=== PATIENT | female | born 1980 | race Caucasian/White ===

== ENCOUNTER → 2017-11-21 | Outpatient (CLI) | payer SELFPAY ==
[~2017-11-21] MED LIST: ABILIFY 10MG TA10 MG PO; AMOXICILLIN500 MG PO; ATIVAN0.5 MG PO; CELEXA 20MG20 MG/TAB PO; CEPHALEXIN250 M1 PO; CEPHALEXIN500 M1 PO; CLINDAMYCI300 MG/50 IV; HYDROCODONE/APAP PO; LORTAB 5/500 501 TAB PO; NO HOME MEDICATIONS; OXYCODONE5 M1 PO; PERCOCET 500 MG1 TAB PO; PREDNISONE10 MG PO; SEROQUEL 200MG200 MG PO; TRIAMCINOLONE A15 GM TP; ZIPRASIDONE
[2017-11-21 17:19] LABS: ALBUMIN 3.9 gm/dL (3.5-5.0); BILIRUBIN,TOTAL 0.3 mg/dL (0.0-1.0); CALCIUM 9.4 mg/dL (8.4-10.2); CREATININE, serum 0.96 mg/dL (0.52-1.25); TOTAL PROTEIN 7.7 gm/dL (6.4-8.2)
[2017-11-21 17:22] LABS: BASO # 0.1 (0.0-0.2); EOS # 0.3 (0.0-0.7); EOS % 4.5 % (0-4.0); GRAN # 3.2 (1.4-6.5); GRAN % 55.1 % (42.2-75.2); HEMATOCRIT 40.2 % (37.0-47.0); HEMOGLOBIN 13.3 g/dl (12.5-16.0); LYMPH # 1.8 (1.2-3.4); LYMPH % 31.3 % (20.0-51.0); MEAN CELL VOLUME 95 fl (80.0-100.0); MEAN CORPUSCULAR HEMOGLOBIN 31 pg (27.0-31.0); MEAN CORPUSCULAR HGB CONC 33 g/dl (33.0-37.0); MEAN PLATELET VOLUME 10.6 fl (7.4-10.4); MONO # 0.5 (0.1-0.6); MONO % 7.9 % (1.7-9.3); PLATELET COUNT 262 K/mm3 (130-400); RED BLOOD COUNT 4.24 M/mm3 (4.10-5.30); REDCELL DISTRIBUTION WIDTH-CV 12.9 % (11.5-14.5)
[2017-11-21 17:48] LABS: TSH w REFLEX 1.72 uIU/mL (0.465-4.680)
== END ==
LOC: COL.LAB 15:57
PROVIDERS: Family Medicine
DX: B19.20 Unspecified viral hepatitis C without hepatic coma (principal); R60.9 Edema, unspecified; R53.83 Other fatigue

== ENCOUNTER 2018-02-26 10:09 | Outpatient (RCR) | payer OTHER | END 2018-05-27 | disposition home or self-care (01) | LOC: WSOH | DX: S61.214A Laceration without foreign body of right ring finger without damage to nail, initial encounter (principal); W26.8XXA Contact with other sharp object(s), not elsewhere classified, initial encounter; Y92.59 Other trade areas as the place of occurrence of the external cause; Y99.0 Civilian activity done for income or pay ==

== ENCOUNTER 2018-11-09 07:41 | Emergency (ER) | payer SELFPAY ==
[~2018-11-09] VITALS: Ht 180.3 cm; Wt 92.3 kg
[2018-11-09 07:47] VITALS: BP 132/82; TEMP 97.9
[2018-11-09] MEDS ORDERED: BACTRIM DS 8001 TAB PO (08:47)
[2018-11-09] MEDS ORDERED: REGLAN 5MG T5 MG/TAB PO (08:47)
[2018-11-09] MEDS ORDERED: NORCO 325 MG-51 TAB PO (08:47)
[2018-11-09] MEDS ORDERED: DIFLUCAN150 MG PO (09:10)
[2018-11-09 09:25] VITALS: PULSE 90
== END 2018-11-09 09:28 | disposition home or self-care (01) ==
LOC: COL.ER 07:41
DX: L03.113 Cellulitis of right upper limb (principal); F17.210 Nicotine dependence, cigarettes, uncomplicated

== ENCOUNTER 2018-12-19 16:02 | Emergency (ER) | payer SELFPAY ==
[~2018-12-19] VITALS: Ht 180.3 cm; Wt 88.6 kg
[~2018-12-19 16:02] MED LIST changes: +BACTRIM DS 8001 TAB PO; +DIFLUCAN150 MG PO; +DOXYCYCLINE HY100 MG PO; +NORCO 325 MG-51 TAB PO; +REGLAN 5MG T5 MG/TAB PO
[2018-12-19 16:08] VITALS: BP 155/95; TEMP 98.5
[2018-12-19] MEDS ORDERED: CEPHALEXIN500 M1 PO (17:31)
[2018-12-19 17:43] VITALS: PULSE 87
== END 2018-12-19 17:43 | disposition home or self-care (01) ==
LOC: COL.ER 16:02
DX: M79.89 Other specified soft tissue disorders (principal); F17.210 Nicotine dependence, cigarettes, uncomplicated; F12.90 Cannabis use, unspecified, uncomplicated; F31.9 Bipolar disorder, unspecified

== ENCOUNTER 2019-08-27 12:24 | Emergency (ER) | payer SELFPAY ==
[~2019-08-27] VITALS: Ht 180.3 cm; Wt 77.3 kg
[2019-08-27 12:29] VITALS: BP 126/85; TEMP 97.6
[2019-08-27 13:01] LABS: COLLECTION METHOD CLEAN CATCH
[2019-08-27 13:14] LABS: BASO % 0.4 % (0.0-2.0); EOS # 0.2 (0.0-0.7); EOS % 2.6 % (0-4.0); GRAN # 4.9 (1.4-6.5); HEMATOCRIT 39.1 % (37.0-47.0); HEMOGLOBIN 12.7 g/dl (12.5-16.0); LYMPH # 1.2 (1.2-3.4); LYMPH % 17.1 % (20.0-51.0); MEAN CELL VOLUME 94 fl (80.0-100.0); MEAN CORPUSCULAR HEMOGLOBIN 30 pg (27.0-31.0); MEAN CORPUSCULAR HGB CONC 33 g/dl (33.0-37.0); MEAN PLATELET VOLUME 10.4 fl (7.4-10.4); MONO # 0.5 (0.1-0.6); MONO % 7.8 % (1.7-9.3); PLATELET COUNT 286 K/mm3 (130-400); RED BLOOD COUNT 4.18 M/mm3 (4.10-5.30); REDCELL DISTRIBUTION WIDTH-CV 12.4 % (11.5-14.5)
[2019-08-27 13:16] LABS: MUCOUS Present /lpf; PH 7 (5-8); URINE APPEARANCE Hazy; URINE BACTERIA Rare /hpf; URINE BILIRUBIN Negative (NEGATIVE); URINE BLOOD 2+ (NEGATIVE); URINE COLOR Yellow; URINE GLUCOSE Negative (NEGATIVE); URINE KETONE Negative (NEGATIVE); URINE LEUKOCYTE ESTERASE Negative (NEGATIVE); URINE NITRATE Negative (NEGATIVE); URINE PROTEIN(semi-quant) Negative (NEGATIVE); URINE RBC 0-2 /hpf; URINE UROBILINOGEN Negative (NEGATIVE)
[2019-08-27 13:22] LABS: ALBUMIN 4.1 gm/dL (3.5-5.0); BILIRUBIN,TOTAL 0.5 mg/dL (0.0-1.0); C-REACTIVE PROTEIN 5.3 mg/dL (0.0-0.9); CALCIUM 11.3 mg/dL (8.4-10.2); CREATININE, serum 0.89 (0.52-1.25); MAGNESIUM 1.9 mg/dL (1.6-2.3); POTASSIUM 4.7 mmol/L (3.4-5.0)
[2019-08-27 13:35] LABS: TRICYCLIC ANTIDEPRESS URINE NEGATIVE
[2019-08-27] MEDS ORDERED: ULTRAM 50MG TAB50 MG PO (15:34)
[2019-08-27] MEDS ORDERED: CIPRO 500MG TA500 MG PO (15:34)
[2019-08-27] MEDS ORDERED: DIFLUCAN150 MG PO (15:34)
[2019-08-27 15:46] VITALS: PULSE 86
== END 2019-08-27 15:49 | disposition home or self-care (01) ==
LOC: COL.ER 12:24
PROVIDERS: Emergency Medicine
DX: N12 Tubulo-interstitial nephritis, not specified as acute or chronic (principal); F17.210 Nicotine dependence, cigarettes, uncomplicated; Z98.51 Tubal ligation status
CPT/HCPCS: J0696; J1170; J2405; J7030; Q9967